=== PATIENT | female | born 1940 | race Caucasian/White ===

== ENCOUNTER 2016-08-05 14:22 | Outpatient (CLI) | payer MEDICARE | END 2016-08-05 14:23 | disposition home or self-care (01) | DX: Z12.31 Encounter for screening mammogram for malignant neoplasm of breast (principal) ==

== ENCOUNTER 2016-08-05 14:24 | Outpatient (CLI) | payer MEDICARE | END 2016-08-05 14:25 | disposition home or self-care (01) | DX: K43.9 Ventral hernia without obstruction or gangrene (principal); R19.02 Left upper quadrant abdominal swelling, mass and lump ==

== ENCOUNTER 2017-10-27 10:59 | Outpatient (CLI) | payer MEDICARE ==
--- NOTE | 2017-10-27 15:09 | XRAY Report ---
THREE VIEW RIGHT KNEE: 10/27/2017 CLINICAL INDICATION: Arthritis. FINDINGS: Frontal, lateral, sunrise views of the right knee demonstrate moderate osteoarthritis, with chondrocalcinosis. There is no evidence of acute fracture. No effusion is present. IMPRESSION: MODERATE OSTEOARTHRITIS, WITH CHONDROCALCINOSIS. TD: 10/27/2017 15:01
== END 2017-10-27 11:00 | disposition home or self-care (01) ==
LOC: DI.S 10:59
PROVIDERS: ATTEND Nurse Practitioner Family
DX: M17.11 Unilateral primary osteoarthritis, right knee (principal); M11.261 Other chondrocalcinosis, right knee

== ENCOUNTER 2018-02-11 19:45 | Emergency (ER) | payer OTHER, MEDICARE ==
--- NOTE | 2018-02-11 20:20 | ED Physician Documentation ---
PD HPI HEAD INJURY - Stated complaint Stated Complaint: GLF/HIT HEAD - Chief complaint Chief Complaint: Trauma Hd/Nk - History obtained from History obtained from: Patient, Family - History of Present Illness Mechanism of head injury: Fell Where head injury occurred: Work Timing - onset: Today Location of injury: Left Quality of pain: Pain, Throbbing, Sharp Associated symptoms: Nausea / vomiting. No: LOC, AMS, Amnesia, Neck pain, Paresthesias, Seizures, Ear drainage, Nasal drainage Symptoms improve with: Rest, Ice Symptoms worsen with: Palpation, Movement Contributing factors: No: Anticoagulated Similar symptoms before: Has not had sx before Recently seen: Not recently seen - Additional information Additional information: Previously well 78-year-old female was at work today when she went to bring some cardboard out to the [employer] she tripped on a rug and fell onto her left side. She bruised her hip and her shoulder and slammed her head hard. She had no loss of consciousness with this. She has significant pain to the side of her head and a knot. She feels nauseous she has not vomited she has some trouble concentrating. She states the fall was witnessed and there was no loss of consciousness and no seizure. She denies illness prior to the fall. She was able to drive home and had her brother give her a ride here. Review of Systems Constitutional: denies: Fever, Chills, Myalgias, Fatigue Eyes: denies: Loss of vision, Decreased vision Ears: denies: Ear pain Nose: denies: Rhinorrhea / runny nose, Congestion Throat: denies: Sore throat Cardiac: denies: Chest pain / pressure, Palpitations Respiratory: denies: Dyspnea, Cough GI: reports: Nausea. denies: Abdominal Pain, Vomiting, Constipation, Diarrhea : denies: Dysuria, Frequency Skin: denies: Rash Musculoskeletal: reports: Extremity pain. denies: Neck pain, Back pain, Joint swelling, Pain with weight bearing Neurologic: reports: Headache, Head injury. denies: Generalized weakness, Focal weakness, Numbness, Difficulty speaking, Near syncope, Seizure, Confused, Altered mental status, LOC PD PAST MEDICAL HISTORY - Past Medical History Past Medical History: Yes Musculoskeletal: Osteoarthritis - Past Surgical History Past Surgical History: No - Allergies Allergies/Adverse Reactions: Allergies Allergy/AdvReac Type Severity Reaction Status Date / Time No Known Drug Allergies Allergy Verified 02/11/18 20:01 - Social History Does the pt smoke?: No Smoking Status: Never smoker Does the pt drink ETOH?: Yes ETOH Use: Beer Does the pt have substance abuse?: No - Immunizations Immunizations are current?: No Immunizations: TDAP >10years/unknown - POLST Patient has POLST: No PD ED PE NORMAL - Vitals Vital signs reviewed: Yes (hypertensive systolic) - General General: Alert and oriented X 3, No acute distress, Well developed/nourished - HEENT HEENT: PERRL, EOMI, Ears normal, Moist mucous membranes, Pharynx benign, Dentition benign, Other (There is a 2cm bruise with ecchymosis and raised without crepitance. ) - Neck Neck: Supple, no meningeal sign, No bony TTP - Cardiac Cardiac: RRR, No murmur - Respiratory Respiratory: No respiratory distress, Clear bilaterally - Abdomen Abdomen: Soft, Non tender - Back Back: No CVA TTP, No spinal TTP - Derm Derm: Normal color, Warm and dry, No rash - Extremities Extremities: No deformity, No edema - Neuro Neuro: Alert and oriented X 3, safety equipment tester 2-12 intact, No motor deficit, No sensory deficit, Normal speech Eye Opening: Spontaneous Motor: Obeys Commands Verbal: Oriented GCS Score: 15 - Psych Psych: Normal mood, Normal affect Results - Vitals Vitals: Vital Signs - 24 hr 02/11/18 02/11/18 19:55 21:16 Temperature 36.6 C Heart Rate 68 62 Respiratory 17 16 Rate Blood Pressure 172/70 H 148/73 H O2 Saturation 98 99 Oxygen O2 Source Room air - Rads (name of study) CT head without Radiology: Prelim report reviewed (Impression: 1. Generalized age-related cortical atrophic changes without evidence of acute intracranial abnormality. 2. Mild to moderate left lateral scalp hematoma and soft tissue swelling.), EMP read indepedently, See rad report PD MEDICAL DECISION MAKING - ED course Complexity details: reviewed results, re-evaluated patient, considered differential, d/w patient, d/w family ED course: 78-year-old previously well female with a contusion to the left side of her head has a hematoma and CT scanning is undertaken. She does have some mild difficulty concentrating only getting two on serial sevens. CT is without evidence of hemorrhage and the patient is discharged with a diagnosis of concussion and is expected to do well. - Sepsis Event Vital Signs: Vital Signs - 24 hr 02/11/18 02/11/18 19:55 21:16 Temperature 36.6 C Heart Rate 68 62 Respiratory 17 16 Rate Blood Pressure 172/70 H 148/73 H O2 Saturation 98 99 Oxygen O2 Source Room air Departure - Departure Disposition: 01 Home, Self Care Clinical Impression: Concussion Qualifiers: Encounter type: initial encounter Loss of consciousness presence/duration: without LOC Qualified Code(s): S06.0X0A - Concussion without loss of consciousness, initial encounter Condition: Stable Instructions: ED Concussion Follow-Up: Olga Madrigal ARNP [Primary Care Provider] -
[2018-02-11 21:17] VITALS: BP 148/73
--- NOTE | 2018-02-11 21:27 | CT Report ---
Reason: left parietal contusion/concussion Procedure Date: 02/11/2018 Accession Number: [id number] / [id number] Procedure: CT - Head W/O CPT Code: FULL RESULT: EXAM: CT HEAD EXAM DATE: 02/11/2018 09:02 PM. CLINICAL HISTORY: Left parietal contusion/concussion. Tripped and fell, striking left side of head. COMPARISON: None. TECHNIQUE: Multiaxial CT images were obtained from the foramen magnum to the vertex. Reformats: Coronal. IV contrast: None. In accordance with CT protocol optimization, one or more of the following dose reduction techniques were utilized for this exam: automated exposure control, adjustment of mA and/or KV based on patient size, or use of iterative reconstructive technique. FINDINGS: Parenchyma: No intraparenchymal hemorrhage. No evidence of mass, midline shift, or CT findings of acute infarction. Martinez-white differentiation is distinct. Scattered bilateral chronic microangiopathic white matter changes are evident. Extraaxial Spaces: Normal for age. No subdural or epidural collections identified. Ventricles: The ventricles and cortical sulci are enlarged, consistent with age-related tissue loss. Sinuses and orbits: No acute findings. Bones: No evidence of fracture or calvarial defect. Other: Mild to moderate left lateral scalp hematoma and soft tissue swelling IMPRESSION: 1. Generalized age-related cortical atrophic changes without evidence of acute intracranial abnormality. 2. Mild to moderate left lateral scalp hematoma and soft tissue swelling. RADIA
== END 2018-02-11 21:35 | disposition home or self-care (01) ==
LOC: ED 19:45
DX: S06.0X0A Concussion without loss of consciousness, initial encounter (principal); S00.03XA Contusion of scalp, initial encounter; W01.198A Fall on same level from slipping, tripping and stumbling with subsequent striking against other object, initial encounter; Y93.01 Activity, walking, marching and hiking; Y92.89 Other specified places as the place of occurrence of the external cause; Y99.0 Civilian activity done for income or pay
CPT/HCPCS: 1040M; 70450; 99283

== ENCOUNTER 2018-03-06 10:16 | Outpatient (CLI) | payer OTHER, MEDICARE ==
--- NOTE | 2018-03-06 16:27 | XRAY Report ---
Reason: SI JOINT PAIN, HX FALL 2 WKS AGO Procedure Date: 03/06/2018 Accession Number: [id number] / [id number] Procedure: XR - Hip w/Pelvis 2-3V LT CPT Code: FULL RESULT: EXAM: LEFT HIP AND PELVIS RADIOGRAPHY EXAM DATE: 03/06/2018 12:00 AM HISTORY: Injury and pain COMPARISON: 03/11/2006 TECHNIQUE: Single frontal view of the pelvis and frogleg lateral view of the LEFT hip, 2 views total FINDINGS: Intact pelvic ring. Mild SI joint degenerative arthritis. Right hip: Acetabular rim osteophytosis. Unremarkable joint space. Left hip: Status post triple cannulated screw fixation of subcapital femoral neck fracture to near-anatomic alignment. Slight residual valgus angulation noted. Mild degenerative arthritis seen at the joint with some slight apical joint space narrowing. Os acetabuli noted. IMPRESSION: Intact old fixation at the left hip. Chronic bony changes as noted. No acute abnormality.
== END 2018-03-06 10:17 | disposition home or self-care (01) ==
LOC: DI 10:16
PROVIDERS: ATTEND Internal Medicine
DX: M16.12 Unilateral primary osteoarthritis, left hip (principal)

== ENCOUNTER 2019-03-25 18:29 | Emergency (ER) | payer MEDICARE ==
--- NOTE | 2019-03-25 18:49 | ED Physician Documentation ---
PD HPI LOWER EXT INJURY - Stated complaint Stated Complaint: LT FOOT PX/SWELLING - Chief complaint Chief Complaint: Ext Problem - History obtained from History obtained from: Patient (She got back from [place] a few days ago and noticed redness and swelling of the anterior and lateral and now medial left ankle. No trauma. No history of gout. No fevers.) Review of Systems Constitutional: denies: Fever, Chills, Myalgias Cardiac: reports: Reviewed and negative Respiratory: reports: Reviewed and negative PD PAST MEDICAL HISTORY - Past Medical History Past Medical History: Yes Musculoskeletal: Osteoarthritis - Past Surgical History Past Surgical History: No - Present Medications Home Medications: Ambulatory Orders Medication Instructions Recorded Confirmed Cephalexin [Keflex] 500 mg PO Q6H #28 capsule 03/25/19 predniSONE [Deltasone] 60 mg PO DAILY 5 Days #15 tablet 03/25/19 - Allergies Allergies/Adverse Reactions: Allergies Allergy/AdvReac Type Severity Reaction Status Date / Time No Known Drug Allergies Allergy Verified 02/11/18 20:01 - Social History Does the pt smoke?: No Smoking Status: Never smoker Does the pt drink ETOH?: Yes Does the pt have substance abuse?: No - Immunizations Immunizations are current?: No Immunizations: TDAP >10years/unknown - POLST Patient has POLST: No PD ED PE NORMAL - Vitals Vital signs reviewed: Yes - General General: Alert and oriented X 3, No acute distress - Extremities Extremities: Other (The anterior ankle joint line is quite red, mild tenderness. Passive range of motion is relatively painless. No calf pain or swelling.) - Neuro Neuro: Alert and oriented X 3, Normal speech Results - Vitals Vitals: Vital Signs - 24 hr 03/25/19 18:34 Temperature 36.2 C L Heart Rate 79 Respiratory 18 Rate Blood Pressure 146/69 H O2 Saturation 97 Oxygen O2 Source Room air - Labs Labs: Laboratory Tests 03/25/19 03/25/19 03/25/19 19:03 19:03 19:03 WBC 5.8 RBC 4.41 Hgb 12.9 Hct 39.9 MCV 90.5 MCH 29.3 MCHC 32.3 RDW 13.4 Plt Count 347 MPV 9.3 Neut # (Auto) 2.8 Lymph # (Auto) 2.0 [place] # (Auto) 0.8 Eos # (Auto) 0.1 Baso # (Auto) 0.1 Absolute Nucleated RBC 0.00 Nucleated RBC % 0.0 ESR 12 Sodium 137 Potassium 4.2 Chloride 100 L Carbon Dioxide 28 Anion Gap 9.0 BUN 18 Creatinine 0.7 Estimated GFR (MDRD) 81 L Glucose 78 Uric Acid 4.4 Calcium 9.0 Total Bilirubin 0.6 AST 26 ALT 18 Alkaline Phosphatase 83 C-Reactive Protein 1.8 H Total Protein 7.2 Albumin 4.5 Globulin 2.7 Albumin/Globulin Ratio 1.7 Lipase 45 PD MEDICAL DECISION MAKING - ED course ED course: 79-year-old woman with what appears to be either cellulitis or gout of the anterior left ankle. Work-up would be more suggestive of a cellulitis than gout and she is treated for same. Departure - Departure Disposition: 01 Home, Self Care Clinical Impression: Left leg cellulitis Condition: Good Record reviewed to determine appropriate education?: Yes Instructions: Cellulitis Dc Prescriptions: Cephalexin [Keflex] 500 mg PO Q6H #28 capsule predniSONE [Deltasone] 60 mg PO DAILY 5 Days #15 tablet Comments: Return for new or worsening symptoms. Follow-up with your doctor on Friday for recheck. Return immediately if you have a fever.
[2019-03-25 19:09] LABS: BASOPHILS # (AUTO) 0.1 10^3/uL (0.0-0.1); BASOPHILS % (AUTO) 0.9 %; EOSINOPHILS # (AUTO) 0.1 10^3/uL (0.0-0.7); EOSINOPHILS % (AUTO) 1.4 %; HGB - HEMOGLOBIN 12.9 g/dL (12.0-16.0); LYMPHOCYTES % (AUTO) 34.3 %; MEAN CORPUSCULAR HEMOGLOBIN 29.3 pg (27.0-31.0); MEAN CORPUSCULAR HGB CONC 32.3 g/dL (32.0-36.0); MEAN CORPUSCULAR VOLUME 90.5 fL (81.0-99.0); MEAN PLATELET VOLUME 9.3 fL (7.9-10.8); MONOCYTES # (AUTO) 0.8 10^3/uL (0.0-1.0); MONOCYTES % (AUTO) 14.2 %; NEUTROPHILS # (AUTO) 2.8 10^3/uL (1.5-6.6); NEUTROPHILS % (AUTO) 48.5 %; PLT - PLATELET COUNT 347 10^3/uL (130-450); RED BLOOD COUNT 4.41 10^6/uL (4.20-5.40); RED CELL DISTRIBUTION WIDTH 13.4 % (12.0-15.0); WHITE BLOOD COUNT 5.8 x10^3/uL (4.8-10.8)
--- NOTE | 2019-03-25 19:33 | XRAY Report ---
Reason: ankle pain Procedure Date: 03/25/2019 Accession Number: [id number] / [id number] Procedure: XR - Ankle 3 View LT CPT Code: Final Report FULL RESULT: EXAM: LEFT ANKLE RADIOGRAPHY EXAM DATE: 03/25/2019 07:03 PM. CLINICAL HISTORY: Ankle pain. COMPARISON: None. TECHNIQUE: 3 views. FINDINGS: Bones: No acute fractures or suspicious bone lesions. Joints: No subluxations. Soft Tissues: Unremarkable. IMPRESSION: No acute radiographic abnormalities. RADIA
[2019-03-25 19:36] LABS: ALBUMIN 4.5 g/dL (3.2-5.5); ALBUMIN/GLOBULIN RATIO 1.7 (1.0-2.2); BILIRUBIN,TOTAL 0.6 mg/dL (0.2-1.0); CREATININE 0.7 mg/dL (0.4-1.0); CRP - C-REACTIVE PROTEIN 1.8 mg/dL (0-1.0); TOTAL PROTEIN 7.2 g/dL (6.7-8.2); URIC ACID 4.4 mg/dL (2.6-7.2)
[2019-03-25] MEDS ORDERED: cephALEXin 250 MG CAPSULE PO STA (19:44)
[2019-03-25] MEDS ORDERED: predniSONE 20 MG TABLET PO STA (19:44)
[2019-03-25 19:53] VITALS: BP 140/68
== END 2019-03-25 19:53 | disposition home or self-care (01) ==
LOC: ED 18:29
DX: L03.116 Cellulitis of left lower limb (principal)
CPT/HCPCS: 36415; 73610; 80053; 83690; 84550; 85025; 85651; 86140; 99283; A9270; J7512

== ENCOUNTER 2019-04-02 08:09 | Outpatient (CLI) | payer MEDICARE ==
--- NOTE | 2019-04-03 08:02 | XRAY Report ---
Reason: SWELLING OF LT FOOT Procedure Date: 04/02/2019 Accession Number: [id number] / [id number] Procedure: XR - Foot 3 View LT CPT Code: Final Report FULL RESULT: EXAM: LEFT FOOT RADIOGRAPHY EXAM DATE: 04/02/2019 08:55 AM. CLINICAL HISTORY: Left foot pain and swelling. COMPARISON: None. TECHNIQUE: 3 views. FINDINGS: Bones: Osteopenia is suspected. No acute fracture seen. No focal area of bone destruction. Joints: No dislocation. Mild degenerative joint disease, for example in the first MTP joint. Soft Tissues: Mild soft tissue swelling. IMPRESSION: 1. No acute osseous abnormality seen. 2. Mild soft tissue swelling. RADIA
--- NOTE | 2019-04-04 16:17 | Ultrasound Report ---
Reason: SWELLING OF LT FOOT Procedure Date: 04/02/2019 Accession Number: [id number] / [id number] Procedure: US - Duplex Lwr Ext Arterial LT CPT Code: Final Report FULL RESULT: EXAM: LEFT LOWER EXTREMITY ARTERIAL DOPPLER ULTRASOUND EXAM DATE: 04/02/2019 08:40 AM. CLINICAL HISTORY: Swelling of left foot. Left foot and ankle edema and pain. COMPARISON: None. TECHNIQUE: Real-time sonographic vascular imaging was performed by the drill operator pneumatic, utilizing color-flow, Doppler flow, and spectral analysis. Multiple regional sales representative static images were saved for review. FINDINGS: Left Leg: EXCEPTIONAL STUDENT EDUCATION AIDE: PSV 90.6 cm/sec. Triphasic/Biphasic waveform. PSFA: PSV 79.5 cm/sec. Biphasic waveform. MSFA: PSV 95.7 cm/sec. Biphasic waveform. DSFA: PSV 68.3 cm/sec. Biphasic waveform. PFA: PSV 51.2 cm/sec. Biphasic waveform. POP: PSV 56.0 cm/sec. Biphasic waveform. AJAY: PSV 60.5 cm/sec. Biphasic waveform. GENERAL FARM HAND: PSV 95.1 cm/sec. Triphasic waveform. PER: PSV 58.0 cm/sec. Biphasic waveform. DPA: PSV 96.2 cm/sec. Triphasic/Biphasic waveform. There is diffuse atherosclerotic disease with biphasic flow throughout the SFA, popliteal arteries and most of the calf vessels. No hemodynamically significant focal stenosis. IMPRESSION: 1. Diffuse atherosclerotic disease without hemodynamically significant focal stenosis. RADIA
== END 2019-04-02 08:10 | disposition home or self-care (01) ==
LOC: DI 08:09
PROVIDERS: ATTEND Nurse Practitioner Family
DX: R22.42 Localized swelling, mass and lump, left lower limb (principal); I70.202 Unspecified atherosclerosis of native arteries of extremities, left leg

== ENCOUNTER 2019-04-07 15:06 | Emergency (ER) | payer MEDICARE ==
--- NOTE | 2019-04-07 16:00 | ED Physician Documentation ---
PD HPI LOWER EXT INJURY - Stated complaint Stated Complaint: RT HIP PX - Chief complaint Chief Complaint: Trauma Ext - History obtained from History obtained from: Patient - History of Present Illness PD HPI LOW EXT INJURY LOCATION: Right, Hip Type of injury: Fall (Accidentally tripped and fell and landed onto her right and side. Denies any injury to the head neck or chest. She had little bit of pain at the elbow but has good range of motion. Main complaint is right hip pain with inability to stand or bear weight. Her family members helped her into the car and brought her to her primary care's office. The provider there came out to the car noted the degree of pain she is in and had them come just to the ER for x-rays and further evaluation.) Where injury occurred: Home Timing - onset: Today (at about 10 am; she got into sofa and rested, hoping would hurt less. but unable to move hip due to pain.) Timing - duration: Hours Timing - details: Abrupt onset, Still present Worsened by: Moving, Palpating Associated symptoms: No: Weakness, Numbness, Swelling Contributing factors: Prior ortho surgery (left hip; no prior problems with right hip.). No: Anticoagulated Similar symptoms before: Diagnosis (feeling similar to hip fracture left side which was about 17 years ago.) Recently seen: Clinic (for redness and swelling of left foot, on abx and steroids last week and was doing better.) Review of Systems Constitutional: denies: Fever, Chills, Myalgias Nose: denies: Rhinorrhea / runny nose, Congestion Throat: denies: Sore throat Cardiac: denies: Chest pain / pressure, Pedal edema, Calf pain Respiratory: denies: Dyspnea, Cough, Wheezing GI: denies: Abdominal Pain, Nausea, Vomiting, Diarrhea, Bloody / black stool Skin: denies: Abrasion (s), Laceration (s) Neurologic: denies: Focal weakness, Numbness, Altered mental status, Headache, Head injury Endocrine: denies: Easy bruising / bleeding PD PAST MEDICAL HISTORY - Past Medical History Cardiovascular: None Respiratory: None Neuro: None Endocrine/Autoimmune: None Musculoskeletal: Osteoarthritis - Past Surgical History Past Surgical History: No - Present Medications Home Medications: Ambulatory Orders Medication Instructions Recorded Confirmed Cephalexin [Keflex] 500 mg PO Q6H #28 capsule 03/25/19 predniSONE [Deltasone] 60 mg PO DAILY 5 Days #15 tablet 03/25/19 - Allergies Allergies/Adverse Reactions: Allergies Allergy/AdvReac Type Severity Reaction Status Date / Time No Known Drug Allergies Allergy Verified 04/07/19 15:12 - Social History Does the pt smoke?: No Smoking Status: Never smoker Does the pt drink ETOH?: Yes Does the pt have substance abuse?: No - Immunizations Immunizations are current?: No Immunizations: TDAP >10years/unknown - POLST Patient has POLST: No PD ED PE NORMAL - Vitals Vital signs reviewed: Yes - General General: Alert and oriented X 3, Well developed/nourished, Other (She appears in pain with attempts of range of motion of the right hip and with palpation there.) - HEENT HEENT: Atraumatic, Pharynx benign - Neck Neck: Supple, no meningeal sign, No bony TTP, No adenopathy - Cardiac Cardiac: RRR, No murmur - Respiratory Respiratory: Clear bilaterally - Abdomen Abdomen: Soft, Non tender - Derm Derm: Normal color, Warm and dry - Extremities Extremities: No edema, No calf tenderness / cord, Other (She has considerable tenderness at the right hip and knee pain elicits with attempted range of motion and slight impaction or distraction testing. The leg is not shortened. There is no rotational defect. She has normal sensation pulses color and capillary refill at the toes. She has normal movement of the foot and ankle.) - Neuro Neuro: Alert and oriented X 3, No motor deficit, No sensory deficit, Normal speech Eye Opening: Spontaneous Motor: Obeys Commands Verbal: Oriented GCS Score: 15 Results - Vitals Vitals: Vital Signs - 24 hr 04/07/19 15:12 Temperature 36.8 C Heart Rate 60 Respiratory 16 Rate Blood Pressure 92/75 O2 Saturation 99 Oxygen O2 Source Room air - Rads (name of study) right hip Radiology: Prelim report reviewed (Impacted right femoral neck fracture without angulation or displacement.), EMP read contemporaneously, See rad report PD MEDICAL DECISION MAKING - ED course Complexity details: reviewed results, considered differential, d/w patient ED course: We have no orthopedics boning room worker for our facility. I talked with the [facility] in the coordinating physician arranged for an accepting physician at [facility]. Transfer papers were filled out. The patient was advised of the reason and need for transfer due to specialist availability. Departure - Departure Disposition: 02 Transfer Acute Care Hosp Clinical Impression: Accidental fall Qualifiers: Encounter type: initial encounter Qualified Code(s): W19.XXXA - Unspecified fall, initial encounter Femoral neck fracture Qualifiers: Encounter type: initial encounter Fracture type: closed Laterality: right Qualified Code(s): S72.001A - Fracture of unspecified part of neck of right femur, initial encounter for closed fracture Condition: Stable Record reviewed to determine appropriate education?: Yes
--- NOTE | 2019-04-07 16:12 | XRAY Report ---
Reason: FALL Procedure Date: 04/07/2019 Accession Number: [id number] / [id number] Procedure: XR - Hip w/Pelvis 2-3V RT CPT Code: Final Report FULL RESULT: EXAM: RIGHT HIP RADIOGRAPHY EXAM DATE: 04/07/2019 03:48 PM. CLINICAL HISTORY: FALL. Unable to straighten her right leg for imaging. Began vomiting during exam. COMPARISON: HIP W/PELVIS 2-3V LT 03/06/2018 10:34 AM. TECHNIQUE: 2 views. FINDINGS: Bones: New acute impacted right femoral neck fracture. Joints: No dislocation. Mild bilateral hip joint space narrowing and sclerosis. Left proximal femur internal fixation hardware again noted. Mild right sacroiliac sclerosis. Mild pubic symphysis degenerative change. IMPRESSION: New acute impacted right femoral neck fracture. RADIA
[2019-04-07] MEDS ORDERED: SODIUM CHLORIDE 0.9% 1,000 ML IV ONE (16:13)
[2019-04-07] MEDS ORDERED: LORazepam 2 MG/ML VIAL IVP STA ×2 (16:13→16:41)
[2019-04-07] MEDS ORDERED: HYDROmorphone 1 MG/ML CARPUJECT IVP STA ×2 (16:13→19:19)
[2019-04-07] MEDS ORDERED: ACETAMINOPHEN 1,000 MG/100 ML 100 ML IV STA (16:42)
[2019-04-07 19:21] VITALS: BP 124/57
== END 2019-04-07 19:30 | disposition short-term general hospital (02) ==
LOC: ED 15:06
DX: S72.001A Fracture of unspecified part of neck of right femur, initial encounter for closed fracture (principal); W01.0XXA Fall on same level from slipping, tripping and stumbling without subsequent striking against object, initial encounter; Y92.009 Unspecified place in unspecified non-institutional (private) residence as the place of occurrence of the external cause
CPT/HCPCS: 73502; 96365; 96375; 96376; 99282; 99285; J0131; J1170; J2060

== ENCOUNTER 2019-04-14 19:53 | Outpatient (CLI) | payer MEDICARE | END 2019-04-14 19:54 | disposition critical access hospital (66) | LOC: EMS 19:53 | PROVIDERS: ATTEND Surgery | DX: M25.551 Pain in right hip (principal) | CPT/HCPCS: A0425; A0429 ==

== ENCOUNTER 2019-04-14 19:58 | Emergency (ER) | payer MEDICARE ==
[2019-04-14] MEDS ORDERED: KETOROLAC 30 MG/ML VIAL IVP STA (21:48)
[2019-04-14 21:49] LABS: BASOPHILS % (AUTO) 0.2 %; EOSINOPHILS % (AUTO) 0.1 %; HGB - HEMOGLOBIN 7.4 g/dL (12.0-16.0); LYMPHOCYTES # (AUTO) 1.1 10^3/uL (1.5-3.5); LYMPHOCYTES % (AUTO) 12.5 %; MEAN CORPUSCULAR HEMOGLOBIN 30.3 pg (27.0-31.0); MEAN CORPUSCULAR HGB CONC 33.2 g/dL (32.0-36.0); MEAN CORPUSCULAR VOLUME 91.4 fL (81.0-99.0); MEAN PLATELET VOLUME 9.4 fL (7.9-10.8); MONOCYTES # (AUTO) 0.5 10^3/uL (0.0-1.0); MONOCYTES % (AUTO) 5.6 %; NEUTROPHILS # (AUTO) 7.2 10^3/uL (1.5-6.6); NEUTROPHILS % (AUTO) 79.5 %; PLT - PLATELET COUNT 341 10^3/uL (130-450); RED BLOOD COUNT 2.44 10^6/uL (4.20-5.40); RED CELL DISTRIBUTION WIDTH 14.2 % (12.0-15.0); WHITE BLOOD COUNT 9.1 x10^3/uL (4.8-10.8)
[2019-04-14 22:05] LABS: ALBUMIN 3.5 g/dL (3.2-5.5); ALBUMIN/GLOBULIN RATIO 1.3 (1.0-2.2); BILIRUBIN,TOTAL 0.9 mg/dL (0.2-1.0); CALCIUM 8.5 mg/dL (8.5-10.3); CREATININE 0.7 mg/dL (0.4-1.0); TOTAL PROTEIN 6.3 g/dL (6.7-8.2)
[2019-04-14] MEDS ORDERED: HYDROmorphone 1 MG/ML CARPUJECT IVP STA (22:32)
[2019-04-14] MEDS ORDERED: ONDANSETRON 4 MG/2 ML VIAL IVP STA (22:32)
[2019-04-14] MEDS ORDERED: SODIUM CHLORIDE 0.9% 1,000 ML IV ONE (22:32)
--- NOTE | 2019-04-14 22:35 | ED Physician Documentation ---
PD HPI LOWER EXT INJURY - Stated complaint Stated Complaint: RIGHT HIP PAIN S/P SURGERY - Chief complaint Chief Complaint: Ext Problem - History obtained from History obtained from: Patient, Family - History of Present Illness PD HPI LOW EXT INJURY LOCATION: Left, Hip, Upper leg Type of injury: Fall, Other (fracture and repair) Where injury occurred: Home Timing - onset: How many days ago (5) Timing - duration: Days (5) Timing - details: Abrupt onset, Still present Worsened by: Moving, Palpating Associated symptoms: Swelling, Discolored. No: Weakness Contributing factors: Prior ortho surgery Similar symptoms before: Has not had sx before Recently seen: Emergency Dept, Admitted, Surgery - Additional information Additional information: 79-year-old female had a fall 6 days ago and she was transferred to [facility] in [place] where she had a repair done of a proximal femur fracture. She was discharged 2 days ago and is now a resident at [facility]. She did well yesterday with physical therapy and she was off of her pain medication. Today her pain is increasing she notes swelling and tenderness to her thigh and she is unable to bear any weight on her leg now. Review of Systems Constitutional: denies: Fever, Chills, Myalgias Eyes: denies: Decreased vision Ears: denies: Ear pain Nose: denies: Rhinorrhea / runny nose, Congestion Throat: denies: Sore throat Cardiac: denies: Chest pain / pressure, Palpitations Respiratory: denies: Dyspnea, Cough GI: denies: Abdominal Pain, Nausea, Vomiting : denies: Dysuria, Frequency Musculoskeletal: reports: Back pain, Extremity pain, Joint pain, Extremity swelling, Pain with weight bearing. denies: Neck pain Neurologic: denies: Generalized weakness, Focal weakness, Numbness PD PAST MEDICAL HISTORY - Past Medical History Past Medical History: Yes Cardiovascular: None Respiratory: None Neuro: None Endocrine/Autoimmune: None Musculoskeletal: Osteoarthritis - Past Surgical History Past Surgical History: No - Present Medications Home Medications: Ambulatory Orders Medication Instructions Recorded Confirmed Acetaminophen 1,000 mg PO Q8HR 04/15/19 04/15/19 Ascorbic Acid 500 mg PO DAILY 04/15/19 04/15/19 Bupropion HCl [Wellbutrin Xl] 300 mg PO DAILY 04/15/19 04/15/19 Calcium Carbonate [Tums (Calcium 2.5 tab PO DAILY 04/15/19 04/15/19 Carbonate 500mg)] Cholecalciferol (Vitamin D3) 1 tab PO DAILY 04/15/19 04/15/19 [Vitamin D3] Docusate Sodium 100 mg PO BID 04/15/19 04/15/19 Enoxaparin Sodium [Lovenox] 60 mg SUBQ BID 04/15/19 04/15/19 Hydrocodone/Acetaminophen 1 - 2 each PO Q6H PRN #14 tablet 04/15/19 [Hydrocodon-Acetaminophen 5-325] Lidocaine Patch 5% [Lidoderm Patch] 1 applic TOP DAILY 04/15/19 04/15/19 Naproxen Sodium 220 mg PO BID 04/15/19 04/15/19 Polyethylene Glycol 3350 [Miralax] 1 packet PO DAILY 04/15/19 04/15/19 Senna [Senokot] 1 tab PO BID 04/15/19 04/15/19 Sertraline HCl 100 mg PO DAILY 04/15/19 04/15/19 - Allergies Allergies/Adverse Reactions: Allergies Allergy/AdvReac Type Severity Reaction Status Date / Time No Known Drug Allergies Allergy Verified 04/14/19 20:05 - Social History Does the pt smoke?: No Smoking Status: Never smoker Does the pt drink ETOH?: Yes Does the pt have substance abuse?: No - Immunizations Immunizations are current?: No Immunizations: TDAP >10years/unknown - POLST Patient has POLST: No PD ED PE NORMAL - Vitals Vital signs reviewed: Yes (hypertensive ) - General General: Alert and oriented X 3, Well developed/nourished, Other (pale appearing female in no distress) - HEENT HEENT: Atraumatic, PERRL, EOMI - Neck Neck: Supple, no meningeal sign, No bony TTP - Respiratory Respiratory: No respiratory distress - Back Back: No CVA TTP, No spinal TTP - Derm Derm: Normal color, Warm and dry, No rash - Extremities Extremities: Other (The thigh is swollen tender and discolored. There is ecchymosis to the medial and lateral aspect of the upper thigh. The anterior surface is firm but not particularly tender. Distal n.v is intact. There is some pain with movement of the joint but not severe. ) - Neuro Neuro: Alert and oriented X 3, channel installer 2-12 intact, No motor deficit, No sensory deficit, Normal speech Eye Opening: Spontaneous Motor: Obeys Commands Verbal: Oriented GCS Score: 15 - Psych Psych: Normal mood, Normal affect Results - Vitals Vitals: Vital Signs - 24 hr 04/14/19 04/14/19 04/14/19 19:58 21:57 23:19 Temperature 98.2 C H Heart Rate 78 84 81 Respiratory 14 104 H 16 Rate Blood Pressure 182/77 H 178/82 H 157/81 H O2 Saturation 99 99 97 04/15/19 04/15/19 04/15/19 01:30 01:35 02:02 Temperature Heart Rate 77 74 Respiratory 18 15 Rate Blood Pressure 146/65 H 146/65 H O2 Saturation 94 84 L 96 04/15/19 04/15/19 04/15/19 02:40 02:45 02:52 Temperature 37.1 C 37.1 C 36.7 C Heart Rate 82 74 73 Respiratory 13 14 14 Rate Blood Pressure 139/60 H 140/66 H 128/78 O2 Saturation 99 04/15/19 04/15/19 04/15/19 02:55 03:11 03:12 Temperature 36.7 C Heart Rate 75 75 75 Respiratory 14 16 16 Rate Blood Pressure 128/78 141/61 H 141/61 H O2 Saturation 96 04/15/19 04/15/19 04/15/19 03:48 04:31 04:52 Temperature 2.5 C L 36.7 C 36.7 C Heart Rate 71 77 72 Respiratory 16 14 13 Rate Blood Pressure 141/61 H 144/67 H 144/67 H O2 Saturation 97 99 04/15/19 05:41 Temperature Heart Rate 72 Respiratory 18 Rate Blood Pressure 144/67 H O2 Saturation 94 Oxygen O2 Source Room air Oxygen Flow Rate 2 - Labs Labs: Laboratory Tests 04/14/19 04/14/19 04/14/19 21:42 21:42 21:42 WBC 9.1 RBC 2.44 L Hgb 7.4 L Hct 22.3 L MCV 91.4 MCH 30.3 MCHC 33.2 RDW 14.2 Plt Count 341 MPV 9.4 Neut # (Auto) 7.2 H Lymph # (Auto) 1.1 L Dane # (Auto) 0.5 Eos # (Auto) 0.0 Baso # (Auto) 0.0 Absolute Nucleated RBC 0.00 Nucleated RBC % 0.0 ESR 32 H Sodium 136 Potassium 4.5 Chloride 103 Carbon Dioxide 26 Anion Gap 7.0 BUN 20 Creatinine 0.7 Estimated GFR (MDRD) 81 L Glucose 182 H Calcium 8.5 Total Bilirubin 0.9 AST 294 H ALT 172 H Alkaline Phosphatase 115 C-Reactive Protein Total Protein 6.3 L Albumin 3.5 Globulin 2.8 Albumin/Globulin Ratio 1.3 Lipase 26 Blood Type Blood Type Recheck Antibody Screen Crossmatch IS Only 04/14/19 04/14/19 04/15/19 21:42 21:42 00:30 WBC RBC Hgb Hct MCV MCH MCHC RDW Plt Count MPV Neut # (Auto) Lymph # (Auto) Dane # (Auto) Eos # (Auto) Baso # (Auto) Absolute Nucleated RBC Nucleated RBC % ESR Sodium Potassium Chloride Carbon Dioxide Anion Gap BUN Creatinine Estimated GFR (MDRD) Glucose Calcium Total Bilirubin AST ALT Alkaline Phosphatase C-Reactive Protein 3.6 H Total Protein Albumin Globulin Albumin/Globulin Ratio Lipase Blood Type A POSITIVE Blood Type Recheck A POSITIVE Antibody Screen NEGATIVE Crossmatch IS Only See Detail 04/15/19 05:55 WBC RBC Hgb 8.4 L Hct 25.1 L MCV MCH MCHC RDW Plt Count MPV Neut # (Auto) Lymph # (Auto) Dane # (Auto) Eos # (Auto) Baso # (Auto) Absolute Nucleated RBC Nucleated RBC % ESR Sodium Potassium Chloride Carbon Dioxide Anion Gap BUN Creatinine Estimated GFR (MDRD) Glucose Calcium Total Bilirubin AST ALT Alkaline Phosphatase C-Reactive Protein Total Protein Albumin Globulin Albumin/Globulin Ratio Lipase Blood Type Blood Type Recheck Antibody Screen Crossmatch IS Only - Rads (name of study) right femur Radiology: Prelim report reviewed (Impression: Expected alignment and appearance of internal fixation and right femoral neck fracture.), EMP read indepedently, See rad report Procedures - IVC sono (time) 2229 Bedside IVC sono: IVC measures (cm) (0.79), IVC collapsed c insp (cm) (complete), Dehydration (est 2 liter deficit) PD MEDICAL DECISION MAKING - ED course Complexity details: reviewed old records, reviewed results, re-evaluated patient, considered differential, d/w patient, d/w family ED course: 79-year-old female with a recent hip fracture was doing well and off of her pain medication and starting physical therapy when today her pain suddenly was worse she is got some swelling in her thigh and she is on some Lovenox. I suspect she has had some bleeding into the thigh related to the exertion and her pain now is intolerable and she is come here from [facility] for evaluation and treatment. She has some improvement in her pain with the use of intravenous Dilaudid. She appears pale and is volume contracted. She has reached the transfusion threshold and is symptomatic and blood is ordered. The surgeon at [facility] Dr. Hartman is consulted in the case and recommends use of blood and pain control. Imaging is unremarkable and inflammatory markers are minimally elevated. The patient is transfused a unit of blood with improvement in her H&H to about where she was discharged following her procedure. Departure - Departure Disposition: 01 Home, Self Care Clinical Impression: Post-operative pain, Acute blood loss anemia Condition: Stable Instructions: Pain Management Post Surg, ED Anemia Type Not Specified Follow-Up: Olga Madrigal ARNP [Primary Care Provider] - Prescriptions: Hydrocodone/Acetaminophen [Hydrocodon-Acetaminophen 5-325] 1 - 2 each PO Q6H PRN #14 tablet PRN Reason: pain
--- NOTE | 2019-04-15 00:46 | XRAY Report ---
Reason: increased pain post op Procedure Date: 04/15/2019 Accession Number: [id number] / [id number] Procedure: XR - Femur 2V RT CPT Code: Final Report FULL RESULT: EXAM: RIGHT FEMUR RADIOGRAPHY EXAM DATE: 04/15/2019 12:27 AM. CLINICAL HISTORY: Increased pain post op. COMPARISON: HIP W/PELVIS 2-3V RT 04/07/2019 3:30 PM. TECHNIQUE: 2 views. FINDINGS: Bones: New internal fixation with plate and screw fixation of right femoral neck fracture. Hardware is intact with no abnormal periprosthetic lucency. Joints: No subluxations. Soft Tissues: Soft tissue swelling and surgical rosalind IMPRESSION: Expected alignment and appearance of internal fixation of right femoral neck fracture. RADIA
[2019-04-15] MEDS ORDERED: LORazepam 2 MG/ML VIAL IVP STA (00:49)
[2019-04-15] MEDS ORDERED: HYDROmorphone 1 MG/ML CARPUJECT IVP STA (00:49)
[2019-04-15] MEDS ORDERED: ACETAMINOPHEN 325 MG TABLET PO STA (03:32)
[2019-04-15] MEDS ORDERED: diphenhydrAMINE INJ 50 MG/ML VIAL IVP STA (03:32)
[2019-04-15 05:59] LABS: HGB - HEMOGLOBIN 8.4 g/dL (12.0-16.0)
[2019-04-15 06:26] VITALS: BP 150/64
== END 2019-04-15 07:57 | disposition home or self-care (01) ==
LOC: EDUNIT# → ED 19:58
DX: G89.18 Other acute postprocedural pain (principal); M25.551 Pain in right hip; M79.89 Other specified soft tissue disorders; D62 Acute posthemorrhagic anemia; E86.0 Dehydration; Z79.01 Long term (current) use of anticoagulants
CPT/HCPCS: 36415; 73552; 80053; 83690; 85014; 85018; 85025; 85651; 86140; 86850; 86900; 86901; 86920; 96361; 96374; 96375; 96376; 99284; 99285; A9270; J1170; J2060; P9016

== ENCOUNTER 2019-04-17 07:00 | Outpatient (CLI) | payer MEDICARE ==
[2019-04-17 09:15] LABS: BASOPHILS # (AUTO) 0.1 10^3/uL (0.0-0.1); BASOPHILS % (AUTO) 0.8 %; EOSINOPHILS # (AUTO) 0.2 10^3/uL (0.0-0.7); EOSINOPHILS % (AUTO) 1.9 %; HGB - HEMOGLOBIN 10.3 g/dL (12.0-16.0); LYMPHOCYTES # (AUTO) 1.1 10^3/uL (1.5-3.5); LYMPHOCYTES % (AUTO) 14.3 %; MEAN CORPUSCULAR HEMOGLOBIN 26.5 pg (27.0-31.0); MEAN CORPUSCULAR HGB CONC 29.9 g/dL (32.0-36.0); MEAN CORPUSCULAR VOLUME 88.7 fL (81.0-99.0); MEAN PLATELET VOLUME 9.8 fL (7.9-10.8); MONOCYTES # (AUTO) 0.7 10^3/uL (0.0-1.0); MONOCYTES % (AUTO) 9.1 %; NEUTROPHILS # (AUTO) 5.7 10^3/uL (1.5-6.6); NEUTROPHILS % (AUTO) 73.1 %; PLT - PLATELET COUNT 241 10^3/uL (130-450); RED BLOOD COUNT 3.88 10^6/uL (4.20-5.40); RED CELL DISTRIBUTION WIDTH 14.7 % (12.0-15.0); WHITE BLOOD COUNT 7.8 x10^3/uL (4.8-10.8)
[2019-04-17 09:26] LABS: ALBUMIN 2.9 g/dL (3.2-5.5); ALBUMIN/GLOBULIN RATIO 1.1 (1.0-2.2); BILIRUBIN,TOTAL 0.9 mg/dL (0.2-1.0); CALCIUM 7.9 mg/dL (8.5-10.3); CREATININE 0.6 mg/dL (0.4-1.0); TOTAL PROTEIN 5.5 g/dL (6.7-8.2)
== END 2019-04-17 23:59 | disposition home or self-care (01) ==
LOC: LAB.R 07:00
PROVIDERS: ATTEND Family Medicine
DX: L53.9 Erythematous condition, unspecified (principal)
CPT/HCPCS: 80053; 85025

== ENCOUNTER 2019-06-17 12:52 | Outpatient (CLI) | payer MEDICARE ==
--- NOTE | 2019-06-18 10:06 | DEXA Report ---
Reason: FRACTURE OF RT FEMUR Procedure Date: 06/17/2019 Accession Number: [id number] / [id number] Procedure: DEX - Dexa Spine and/or Hip CPT Code: Final Report FULL RESULT: EXAM: Dexa Spine and/or Hip, Dexa Forearm DATE: 06/17/2019 1:25 PM CLINICAL HISTORY: FRACTURE OF RT FEMUR TECHNIQUE: Dual energy x-ray absorptiometry (DXA) was performed on a [employer]underbeam System. Regions measured are the AP Spine, femoral neck, and if needed forearm. In this case, forearm and spine DEXA imaging is performed as the patient has current bilateral hip fractures. COMPARISON: None. In accordance with the International Society for Clinical Densitometry (ISCD) guidelines, data from previous exams may be reanalyzed using current recommendations and techniques. This is done to allow a more accurate basis for comparison with the current study. FINDINGS: The data for the lumbar spine is as follows: BMD (g/cm/cm) T-SCORE Z-SCORE REGION L1 0.952 -1.5 0.6 L2 0.954 -2.0 0.1 L3 1.063 -1.1 1.0 L4 1.160 -0.3 1.8 TOTAL 1.049 -1.1 1.0 NOTE: All evaluable vertebrae are used for classification The data for the left forearm is as follows: BMD (g/cm/cm) T-SCORE Z-SCORE REGION 1/3 0.723 -1.7 0.8 NOTE: The 33% radius of the nondominant forearm is used for classification. IMPRESSION: THE WHO CLASSIFICATION BASED ON THE INTERNATIONAL REFERENCE STANDARD IS OSTEOPENIA. THE FRACTURE RISK IS INCREASED. RECOMMENDATION: Patients with diagnosis of osteoporosis or osteopenia should have regular bone mineral density assessment. For those eligible for Medicare, routine testing is allowed once every 2 years. Testing frequency can be increased for patients who have rapidly progressing disease or for those who are receiving medical therapy to restore bone mass. COMMENT: World Health Organization (WHO) definitions for osteoporosis and osteopenia: NORMAL BMD: T-score at -1.0 or higher, fracture risk is low OSTEOPENIA BMD: T-score between -1.0 and -2.5, fracture risk is increased. OSTEOPOROSIS BMD: T-score at -2.5 or lower, fracture risk is high. National Osteoporosis Foundation recommends: 1. Obtain adequate dietary calcium (at least 1200 mg per day) and vitamin D (400-800 international units per day). 2. Participate, as appropriate, in regular weightbearing and muscle-strengthening exercise. 3. Avoid tobacco use and reduce alcohol and caffeine intake. 4. For more detailed information see the website at www.NOF.org.
--- NOTE | 2019-06-18 10:06 | DEXA Report ---
Reason: OSTEOPOROSIS Procedure Date: 06/17/2019 Accession Number: [id number] / [id number] Procedure: DEX - Dexa Forearm CPT Code: Final Report FULL RESULT: EXAM: Dexa Spine and/or Hip, Dexa Forearm DATE: 06/17/2019 1:25 PM CLINICAL HISTORY: FRACTURE OF RT FEMUR TECHNIQUE: Dual energy x-ray absorptiometry (DXA) was performed on a [employer] System. Regions measured are the AP Spine, femoral neck, and if needed forearm. In this case, forearm and spine DEXA imaging is performed as the patient has current bilateral hip fractures. COMPARISON: None. In accordance with the International Society for Clinical Densitometry (ISCD) guidelines, data from previous exams may be reanalyzed using current recommendations and techniques. This is done to allow a more accurate basis for comparison with the current study. FINDINGS: The data for the lumbar spine is as follows: BMD (g/cm/cm) T-SCORE Z-SCORE REGION L1 0.952 -1.5 0.6 L2 0.954 -2.0 0.1 L3 1.063 -1.1 1.0 L4 1.160 -0.3 1.8 TOTAL 1.049 -1.1 1.0 NOTE: All evaluable vertebrae are used for classification The data for the left forearm is as follows: BMD (g/cm/cm) T-SCORE Z-SCORE REGION 1/3 0.723 -1.7 0.8 NOTE: The 33% radius of the nondominant forearm is used for classification. IMPRESSION: THE WHO CLASSIFICATION BASED ON THE INTERNATIONAL REFERENCE STANDARD IS OSTEOPENIA. THE FRACTURE RISK IS INCREASED. RECOMMENDATION: Patients with diagnosis of osteoporosis or osteopenia should have regular bone mineral density assessment. For those eligible for Medicare, routine testing is allowed once every 2 years. Testing frequency can be increased for patients who have rapidly progressing disease or for those who are receiving medical therapy to restore bone mass. COMMENT: World Health Organization (WHO) definitions for osteoporosis and osteopenia: NORMAL BMD: T-score at -1.0 or higher, fracture risk is low OSTEOPENIA BMD: T-score between -1.0 and -2.5, fracture risk is increased. OSTEOPOROSIS BMD: T-score at -2.5 or lower, fracture risk is high. National Osteoporosis Foundation recommends: 1. Obtain adequate dietary calcium (at least 1200 mg per day) and vitamin D (400-800 international units per day). 2. Participate, as appropriate, in regular weightbearing and muscle-strengthening exercise. 3. Avoid tobacco use and reduce alcohol and caffeine intake. 4. For more detailed information see the website at www.NOF.org.
== END 2019-06-17 12:53 | disposition home or self-care (01) ==
LOC: DI 12:52
PROVIDERS: ATTEND Registered Nurse
DX: Z13.820 Encounter for screening for osteoporosis (principal); M85.89 Other specified disorders of bone density and structure, multiple sites; S72.002D Fracture of unspecified part of neck of left femur, subsequent encounter for closed fracture with routine healing; S72.001D Fracture of unspecified part of neck of right femur, subsequent encounter for closed fracture with routine healing
CPT/HCPCS: 77080; 77081

== ENCOUNTER 2019-07-19 08:57 | Outpatient (CLI) | payer MEDICARE ==
--- NOTE | 2019-07-19 10:21 | XRAY Report ---
Reason: LOW BACK PAIN Procedure Date: 07/19/2019 Accession Number: [id number] / [id number] Procedure: XR - Hip w/Pelvis 2-3V RT CPT Code: Final Report FULL RESULT: EXAM: RIGHT HIP RADIOGRAPHY EXAM DATE: 07/19/2019 09:59 AM. CLINICAL HISTORY: Low back pain. COMPARISON: FEMUR 2V RT 04/14/2019 11:54 PM. TECHNIQUE: 2 views. FINDINGS: Bones: Interval subtrochanteric fracture of the right proximal femur with failure of a previously placed cephalomedullary screw which was secured by 2 lateral interlocking screws at the proximal femur, the lower of which has fractured with apex volar and medial angulation of the fracture. Contralateral side hip pinning with 3 partially threaded cannulated screws is noted. Joints: Degenerative changes of the visualized hip joints are essentially stable compared to prior. Soft Tissues: No unexpected radiopaque foreign body. IMPRESSION: Interval fracture with hardware failure on the right. CRITICAL RESULT: The findings were discussed with Dr. Anand on 07/19/2019 at 10 AM and the patient was brought to the emergency department directly from the outpatient radiography appointment. ИРИНА The call report notification system was initiated by Dr. Fito Nino at 10:19 AM on 07/19/2019. The above call report findings were discussed with Olga Madrigal by Dr. Fito Nino at 10:23 AM on 07/19/2019.
--- NOTE | 2019-07-20 06:49 | XRAY Report ---
Reason: LOW BACK PAIN Procedure Date: 07/19/2019 Accession Number: [id number] / [id number] Procedure: XR - Lumbar Spine 2 View CPT Code: Final Report FULL RESULT: EXAM: LUMBOSACRAL SPINE RADIOGRAPHY EXAM DATE: 07/19/2019 09:59 AM. CLINICAL HISTORY: Low back pain. COMPARISONS: None. TECHNIQUE: 2 views. FINDINGS: Alignment: Normal. No spondylolisthesis or meaningful scoliosis. Bones: 6 [id number] lumbar vertebral bodies are present, lumbarization of S1. The bones are qualitatively osteopenic; this limits evaluation for underlying fractures or masses. No fractures or bone lesions. Disks: Normal. Disk heights are maintained. Facets: Multilevel facet arthropathy is most pronounced in the lower lumbar spine. Sacroiliac Joints: Unremarkable. Soft Tissues: Normal. The visualized bowel gas pattern is normal. IMPRESSION: Osteopenia and lumbarization of S1. Within these limitations no overt malalignment or compression fracture. RADIA
== END 2019-07-19 08:58 | disposition home or self-care (01) ==
LOC: DI 08:57
PROVIDERS: ATTEND Registered Nurse
DX: M96.661 Fracture of femur following insertion of orthopedic implant, joint prosthesis, or bone plate, right leg (principal); T84.114A Breakdown (mechanical) of internal fixation device of right femur, initial encounter; M16.0 Bilateral primary osteoarthritis of hip; M47.816 Spondylosis without myelopathy or radiculopathy, lumbar region; M85.88 Other specified disorders of bone density and structure, other site; Q76.49 Other congenital malformations of spine, not associated with scoliosis
CPT/HCPCS: 72100

== ENCOUNTER 2019-07-19 10:09 | Emergency (ER) | payer MEDICARE ==
--- NOTE | 2019-07-19 10:47 | ED Physician Documentation ---
PD HPI LOWER EXT INJURY - Stated complaint Stated Complaint: HIP PX - Chief complaint Chief Complaint: Ext Problem - History obtained from History obtained from: Patient, Family - History of Present Illness PD HPI LOW EXT INJURY LOCATION: Right, Hip Type of injury: Twist Where injury occurred: Home Timing - onset: How many weeks ago (2) Timing - duration: Weeks (2) Timing - details: Gradual onset, Still present Improved by: Rest, Immobilization Worsened by: Moving, Palpating Associated symptoms: No: Weakness, Numbness, Tingling Contributing factors: Prior ortho surgery. No: Anticoagulated Similar symptoms before: Has not had sx before Recently seen: Clinic - Additional information Additional information: 79-year-old female has had a hip fracture on the right she has had a pinning done in March of last year. She has been on crutches since that time and she was doing quite well requiring only 1 crutch and about 2 weeks ago she began to develop some pain in her right hip. She went in to see Dr. Marquis at [facility] orthopedics in [place] and had an x-ray done. That showed fracture of 1 of the screws. He asked her to go back on to 2 crutches. The patient has had increased pain and spasm in her thigh on the right side and she went in to see her primary care doctor and x-ray was ordered she had x-ray done this morning she is brought over to the emergency department by the x-ray technicians with fracture and a broken screw. Review of Systems Constitutional: denies: Fever, Chills, Myalgias Eyes: denies: Decreased vision Ears: denies: Ear pain Nose: denies: Rhinorrhea / runny nose, Congestion Throat: denies: Sore throat Cardiac: denies: Chest pain / pressure, Palpitations Respiratory: denies: Dyspnea, Cough GI: denies: Abdominal Pain, Nausea, Vomiting, Constipation, Diarrhea : reports: Incontinent. denies: Dysuria Skin: denies: Rash Musculoskeletal: reports: Extremity pain, Joint pain, Pain with weight bearing. denies: Neck pain, Back pain Neurologic: denies: Generalized weakness, Focal weakness, Numbness PD PAST MEDICAL HISTORY - Past Medical History Cardiovascular: None Respiratory: None Neuro: None Endocrine/Autoimmune: None HEENT: Glaucoma Psych: Anxiety Musculoskeletal: Osteoarthritis Derm: Other - Past Surgical History Past Surgical History: No Ortho: Other HEENT: Cataracts - Present Medications Home Medications: Ambulatory Orders Medication Instructions Recorded Confirmed Acetaminophen 1,000 mg PO Q8HR 04/15/19 04/15/19 Ascorbic Acid 500 mg PO DAILY 04/15/19 04/15/19 Bupropion HCl [Wellbutrin Xl] 300 mg PO DAILY 04/15/19 04/15/19 Calcium Carbonate [Tums (Calcium 2.5 tab PO DAILY 04/15/19 04/15/19 Carbonate 500mg)] Cholecalciferol (Vitamin D3) 1 tab PO DAILY 04/15/19 04/15/19 [Vitamin D3] Docusate Sodium 100 mg PO BID 04/15/19 04/15/19 Enoxaparin Sodium [Lovenox] 60 mg SUBQ BID 04/15/19 04/15/19 Hydrocodone/Acetaminophen 1 - 2 each PO Q6H PRN #14 tablet 04/15/19 [Hydrocodon-Acetaminophen 5-325] Lidocaine Patch 5% [Lidoderm Patch] 1 applic TOP DAILY 04/15/19 04/15/19 Naproxen Sodium 220 mg PO BID 04/15/19 04/15/19 Senna [Senokot] 1 tab PO BID 04/15/19 04/15/19 Sertraline HCl 100 mg PO DAILY 04/15/19 04/15/19 polyethylene glycoL 3350 [Miralax] 1 packet PO DAILY 04/15/19 04/15/19 - Allergies Allergies/Adverse Reactions: Allergies Allergy/AdvReac Type Severity Reaction Status Date / Time No Known Drug Allergies Allergy Verified 04/14/19 20:05 - Social History Does the pt smoke?: No Smoking Status: Never smoker Does the pt drink ETOH?: Yes Does the pt have substance abuse?: No - Immunizations Immunizations are current?: No Immunizations: TDAP >10years/unknown - POLST Patient has POLST: No PD ED PE NORMAL - Vitals Vital signs reviewed: Yes (hypertensive ) - General General: Alert and oriented X 3, No acute distress, Well developed/nourished - HEENT HEENT: Atraumatic, PERRL, EOMI - Respiratory Respiratory: No respiratory distress - Derm Derm: Normal color, Warm and dry, No rash - Extremities Extremities: No deformity, No edema, No calf tenderness / cord, Other (There is no shortening or rotation of the RLE. There is tenderness to the hip and pain to the hip with ROM testing .) - Neuro Neuro: Alert and oriented X 3, wood club neck whipper 2-12 intact, No motor deficit, No sensory deficit, Normal speech Eye Opening: Spontaneous Motor: Obeys Commands Verbal: Oriented GCS Score: 15 - Psych Psych: Normal mood, Normal affect Results - Vitals Vitals: Vital Signs - 24 hr 07/19/19 07/19/19 07/19/19 10:27 12:20 13:25 Temperature 36.5 C Heart Rate 70 61 63 Respiratory 13 11 L 13 Rate Blood Pressure 163/67 H 130/60 130/61 O2 Saturation 100 98 96 Oxygen O2 Source Nasal cannula - Rads (name of study) hip R Radiology: Prelim report reviewed (Impression: Interval fracture with hardware failure on the right.), EMP read indepedently, See rad report PD MEDICAL DECISION MAKING - ED course Complexity details: reviewed old records, reviewed results, re-evaluated patie nt, considered differential, d/w patient, d/w family ED course: 79-year-old female with failing right hip hardware has fracture with the failing hardware and she is having increasing pain to the point where she is requiring parenteral narcotic for pain control. She reports a lot of spasm in her right thigh she has been attempting to ambulate with use of crutches and this is becoming more more painful day by day. Arrangements are made for transfer of the patient to [facility] for evaluation for repair. Departure - Departure Disposition: 02 Transfer Acute Care [facility] Clinical Impression: Failed hardware Hip subtrochanteric fracture Qualifiers: Encounter type: initial encounter Fracture type: closed Fracture alignment: displaced Laterality: right Qualified Code(s): S72.21XA - Displaced subtrochanteric fracture of right femur, initial encounter for closed fracture Condition: Stable
[2019-07-19] MEDS ORDERED: KETOROLAC 30 MG/ML VIAL IVP STA (11:18)
[2019-07-19] MEDS ORDERED: HYDROmorphone 1 MG/ML SYRINGE IVP STA ×2 (11:58→15:23)
[2019-07-19] MEDS ORDERED: ONDANSETRON 4 MG/2 ML VIAL IVP STA ×2 (11:58→15:23)
[2019-07-19 15:04] VITALS: BP 146/59
== END 2019-07-19 15:30 | disposition short-term general hospital (02) ==
LOC: ED 10:09
DX: M96.661 Fracture of femur following insertion of orthopedic implant, joint prosthesis, or bone plate, right leg (principal); S72.21XA Displaced subtrochanteric fracture of right femur, initial encounter for closed fracture; W19.XXXA Unspecified fall, initial encounter; T84.114A Breakdown (mechanical) of internal fixation device of right femur, initial encounter; Y83.1 Surgical operation with implant of artificial internal device as the cause of abnormal reaction of the patient, or of later complication, without mention of misadventure at the time of the procedure; M62.838 Other muscle spasm; M16.0 Bilateral primary osteoarthritis of hip; M47.816 Spondylosis without myelopathy or radiculopathy, lumbar region; M85.88 Other specified disorders of bone density and structure, other site; Q76.49 Other congenital malformations of spine, not associated with scoliosis
CPT/HCPCS: 72100; 73502; 96374; 96375; 96376; 99285; J1170

== ENCOUNTER 2019-07-19 15:31 | Outpatient (CLI) | payer MEDICARE | END 2019-07-19 15:32 | disposition home or self-care (01) | LOC: EMS 15:31 | PROVIDERS: ATTEND Surgery | DX: M25.551 Pain in right hip (principal) | CPT/HCPCS: A0425; A0428 ==

== ENCOUNTER 2020-05-02 15:29 | Outpatient (CLI) | payer MEDICARE ==
[2020-05-02 20:17] LABS: BASOPHILS # (AUTO) 0.1 10^3/uL (0.0-0.1); BASOPHILS % (AUTO) 0.9 %; EOSINOPHILS # (AUTO) 0.1 10^3/uL (0.0-0.7); EOSINOPHILS % (AUTO) 1.2 %; HGB - HEMOGLOBIN 13.8 g/dL (12.0-16.0); LYMPHOCYTES # (AUTO) 2.5 10^3/uL (1.5-3.5); LYMPHOCYTES % (AUTO) 44.4 %; MEAN CORPUSCULAR HEMOGLOBIN 28.9 pg (27.0-31.0); MEAN CORPUSCULAR HGB CONC 30.8 g/dL (32.0-36.0); MEAN CORPUSCULAR VOLUME 93.7 fL (81.0-99.0); MONOCYTES # (AUTO) 0.7 10^3/uL (0.0-1.0); MONOCYTES % (AUTO) 11.7 %; NEUTROPHILS # (AUTO) 2.3 10^3/uL (1.5-6.6); NEUTROPHILS % (AUTO) 41.4 %; PLT - PLATELET COUNT 478 10^3/uL (130-450); RED BLOOD COUNT 4.78 10^6/uL (4.20-5.40); RED CELL DISTRIBUTION WIDTH 13.7 % (12.0-15.0); WHITE BLOOD COUNT 5.7 x10^3/uL (4.8-10.8)
[2020-05-02 20:23] LABS: ALBUMIN 4.6 g/dL (3.2-5.5); ALBUMIN/GLOBULIN RATIO 1.8 (1.0-2.2); BILIRUBIN,TOTAL 0.7 mg/dL (0.2-1.0); CALCIUM 9.5 mg/dL (8.5-10.3); CREATININE 0.7 mg/dL (0.4-1.0); TOTAL PROTEIN 7.2 g/dL (6.7-8.2)
== END 2020-05-02 15:30 | disposition home or self-care (01) ==
LOC: LAB.S 15:29
PROVIDERS: ATTEND Nurse Practitioner Psychiatric/Mental Health
DX: Z79.899 Other long term (current) drug therapy (principal)
CPT/HCPCS: 36415; 80053; 85025

== ENCOUNTER 2022-04-17 09:52 | Outpatient (CLI) | payer MEDICARE ==
--- NOTE | 2022-04-17 10:34 | XRAY Report ---
PROCEDURE: Chest 2 View X-Ray INDICATIONS: COUGH TECHNIQUE: 2 views of the chest were acquired. COMPARISON: None FINDINGS: Surgical changes and devices: None. Lungs and pleura: No pleural effusions or pneumothorax. Lungs are clear. Mediastinum: Mediastinal contours are normal. Heart size is normal. Bones and chest wall: No suspicious bony abnormalities. Soft tissues appear unremarkable. IMPRESSION: Normal chest x-ray Reviewed by: Ankit Calvin on 04/17/2022 10:32 AM [facility] Approved by: Ankit Calvin on 04/17/2022 10:32 AM [facility] Station ID: [id number]
== END 2022-04-17 09:53 | disposition home or self-care (01) ==
LOC: DI.S 09:52
PROVIDERS: ATTEND Registered Nurse
DX: R05.9 Cough, unspecified (principal)

== ENCOUNTER 2022-07-22 07:08 | Outpatient (CLI) | payer MEDICARE ==
[2022-07-22] MEDS ORDERED: LIDOCAINE-MPF 1% 5 ML VIAL ONE (07:43)
[2022-07-22] MEDS ORDERED: fentaNYL 100 MCG/2 ML VIAL ONE (07:59)
[2022-07-22] MEDS ORDERED: MIDAZOLAM 2 MG/2 ML VIAL ONE (07:59)
[2022-07-22] MEDS ORDERED: LACTATED RINGERS 1,000 ML IV ONE (08:58)
[2022-07-22 09:03] LABS: PT - PROTHROMBIN TIME 10.8 secs (9.9-12.6)
[2022-07-22] MEDS ORDERED: fentaNYL 100 MCG/2 ML VIAL IVP SCH (09:30)
[2022-07-22] MEDS: MIDAZOLAM 2 MG/2 ML VIAL IVP ONE ×2 (09:30→12:05)
[2022-07-22] MEDS ORDERED: fentaNYL 100 MCG/2 ML VIAL IVP ONE (09:30)
[2022-07-22] MEDS ORDERED: ACETAMINOPHEN 325 MG TABLET PO ONE (10:26)
[2022-07-22 11:41] VITALS: BP 141/82
[2022-07-22] MEDS ORDERED: ACETAMINOPHEN 325 MG TABLET PO STA (12:07)
[2022-07-22] MEDS ORDERED: LIDOCAINE-MPF 1% 5 ML VIAL SUBQ ONE (12:09)
--- NOTE | 2022-07-22 14:17 | CT Report ---
PROCEDURE: BONE MARROW BX W/ASPIRATION Sedation analgesia for 15 minutes. INDICATIONS: POLYCYTHEMIA VERA TECHNIQUE: The indications, alternatives, benefits, risks, and possible complications of the procedure were comm unicated to the patient. Informed written consent from the patient was obtained and placed in the art. Continuous EKG and hemodynamic monitoring was started by trained personnel. For radiation dose reduction, the following was used: automated exposure control, adjustment of mA and/or kV according to patient size. The patient was brought to the CT suite and technical instructor course developer spiral CT imaging was performed with localization g rid. The appropriate site for percutaneous access to the biopsy target was marked, was prepped and d raped sterilely, and was infused with local anaesthesia. Under CT guidance, a core biopsy trocar and needle set was advanced to the biopsy target, and specimen(s) were obtained. A bone marrow aspirate specimen was obtained and subsequently a marrow core was obtained. The trocar and needle were then r emoved, and the patient was sent for post-procedure monitoring. COMPARISON: None. FINDINGS: Biopsy site: Right posterior iliac bone Needle: 11 gauge biopsy needle with introducer trocar. Number of passes: 2 Medications: 1% lidocaine for local anaesthesia. IV Fentanyl and Versed for conscious sedation for 15 minutes (see nursing record). Complications: None. IMPRESSION: Successful CT-guided bone marrow aspirate and biopsy of right iliac bone.. Reviewed by: Maegan Washington MD on 07/22/2022 2:15 PM PST Approved by: Maegan Washington MD on 07/22/2022 2:15 PM PST Station ID: [id number]
== END 2022-07-22 07:09 | disposition home or self-care (01) ==
LOC: DI 07:08
PROVIDERS: ATTEND Internal Medicine Hematology & Oncology
DX: D75.1 Secondary polycythemia (principal); D62 Acute posthemorrhagic anemia; C94.6 Myelodysplastic disease, not elsewhere classified
CPT/HCPCS: 36415; 38222; 77012; 85610; 85730; A9270; J7120

== ENCOUNTER 2022-09-12 07:00 | Outpatient (CLI) | payer MEDICARE | END 2022-09-12 23:59 | disposition home or self-care (01) | LOC: LAB.S 07:00 | PROVIDERS: ATTEND Emergency Medicine | DX: L03.113 Cellulitis of right upper limb (principal) | CPT/HCPCS: 87070; 87181; 87205 ==

== ENCOUNTER 2023-08-06 07:52 | Outpatient (CLI) | payer MEDICARE ==
--- NOTE | 2023-08-06 11:14 | DEXA Report ---
PROCEDURE: Dexa Spine and/or Hip INDICATIONS: OSTEOPENIA TECHNIQUE: Dual energy x-ray absorptiometry (DXA) was performed on a [employer] System. Regions measur ed are the AP Spine, femoral neck, and if needed forearm. COMPARISON: 06/17/2019 FINDINGS: Lumbar Spine: Bone Mineral Density: 1.040 g/cm/cm,T score: -1.2. There has been no statistically significant guerrero e in bone mineral density since the prior study. Left Forearm: Bone Mineral Density: 0.715 g/cm/cm, T score: -1.8. There has been no statistically significant guerrero e in bone mineral density since the prior study. (T score greater or equal to -1.0: NORMAL) (T score from -1.1 to -2.4: OSTEOPENIA) (T score less than or equal to -2.5 to: OSTEOPOROSIS) Impression: By WHO criteria, this patient has low bone density (osteopenia). No statistical interval change in bone mineral density of the lumbar spine. No statistical interval c hange in bone mineral density of the hip. Patients with diagnosis of osteoporosis or osteopenia should have regular bone mineral density assess ment. For those eligible for Medicare, routine testing is allowed once every 2 years. Testing frequ ency can be increased for patients who have rapidly progressing disease or for those who are receivin g medical therapy to restore bone mass. Reviewed by: Burke Mathew MD on 08/06/2023 11:13 AM PDT Approved by: Burke Mathew MD on 08/06/2023 11:13 AM PDT Station ID: [id number]
== END 2023-08-06 07:53 | disposition home or self-care (01) ==
LOC: DI 07:52
PROVIDERS: ATTEND Registered Nurse
DX: M85.89 Other specified disorders of bone density and structure, multiple sites (principal); Z87.81 Personal history of (healed) traumatic fracture

== ENCOUNTER 2023-08-21 13:22 | Outpatient (CLI) | payer MEDICARE ==
--- NOTE | 2023-08-21 16:38 | CT Report ---
PROCEDURE: Lumbar Spine WO INDICATIONS: OSTEOPENIA TECHNIQUE: Noncontrast 3 mm thick sections acquired from the T12 level to the sacrum. Sagittal and coronal refo rmats were constructed. For radiation dose reduction, the following was used: automated exposure co ntrol, adjustment of mA and/or kV according to patient size. COMPARISON: None. FINDINGS: Image quality: Excellent. Bones: There is normal bony alignment. Partial lumbarization of S1. No acute vertebral body compress ion fractures. Diffuse osteopenia with increased visibility of the vertical trabeculations of the lum bar vertebral bodies. No suspicious lytic or blastic bony lesions. Central spinal caliber is of nor mal overall caliber. No pars defects. T12-L1: No canal stenosis or foraminal stenosis. L1-L2: No canal stenosis or foraminal stenosis. L2-L3: No stenosis or foraminal stenosis. L3-L4: Facet hypertrophy. No canal stenosis or foraminal stenosis. L4-L5: Facet hypertrophy, right greater than left. No canal stenosis or foraminal stenosis. L5-S1: Facet hypertrophy. Disc bulge. No canal stenosis. Moderate to severe bilateral foraminal santhosh nosis with a degree of bilateral foraminal L5 nerve root impingement. S1-S2: Partial lumbarization of S1. No canal stenosis or significant foraminal stenosis. Soft tissues: No retroperitoneal masses or hematomas. Visualized aorta is normal in caliber. IMPRESSION: 1. Please note the numbering system describes a partially lumbarized S1. Should surgery be contemplat ed in this patient, careful correlation for correct surgical level is required. 2. Diffuse osteopenia without acute compression fracture. 3. Multilevel facet arthropathy. 4. No canal stenosis. 5. At L5-S1, there is moderate to severe bilateral foraminal stenosis with a degree of bilateral fora annalise L5 nerve root impingement. Reviewed by: Sergey Interiano MD on 08/21/2023 4:37 PM PDT Approved by: Sergey Interiano MD on 08/21/2023 4:37 PM PDT Station ID: [id number]
--- NOTE | 2023-08-21 16:40 | CT Report ---
PROCEDURE: Thoracic Spine WO INDICATIONS: OSTEOPENIA TECHNIQUE: Noncontrast 3 mm thick sections acquired through the region of interest in the thoracic spine. Sagit stephanie and coronal reformats were then constructed. For radiation dose reduction, the following was used : automated exposure control, adjustment of mA and/or kV according to patient size. COMPARISON: None. FINDINGS: Image quality: Excellent. Bones: There is normal overall bony alignment. No acute vertebral body compression fractures. Diffu se osteopenia with increase in visibility of the vertical bony trabeculations. Mild increased thoraci c kyphosis. No suspicious sclerotic or lytic bony lesions. Central spinal canal is of normal overall caliber. No canal stenosis or foraminal stenosis. Soft tissues: No paravertebral masses or hematomas. Visualized posteromedial lungs appear clear. IMPRESSION: There is diffuse osteopenia with mild increased thoracic kyphosis. There are no acute compression fra ctures. No canal stenosis or foraminal stenosis involving the thoracic spine. Reviewed by: Sergey Interiano MD on 08/21/2023 4:39 PM PDT Approved by: Sergey Interiano MD on 08/21/2023 4:39 PM PDT Station ID: [id number]
== END 2023-08-21 13:23 | disposition home or self-care (01) ==
LOC: DI 13:22
PROVIDERS: ATTEND Registered Nurse
DX: M47.816 Spondylosis without myelopathy or radiculopathy, lumbar region (principal); M47.27 Other spondylosis with radiculopathy, lumbosacral region; M48.07 Spinal stenosis, lumbosacral region; M51.17 Intervertebral disc disorders with radiculopathy, lumbosacral region